=== PATIENT | male | born 1985 | race Caucasian/White ===

== ENCOUNTER 2020-12-22 19:57 | Observation (INO) | payer BC ==
[2020-12-22] MEDS ORDERED: Nitroglycerin 0.4 MG Tab.SL SL PRN (20:25)
[2020-12-22] MEDS ORDERED: Sodium Chloride 0.9% 10 ML Syringe FLUSH PRN (20:25)
[2020-12-22] MEDS ORDERED: Sodium Chloride 0.9% 2.5 ML Syringe FLUSH PRN (20:25)
[2020-12-22] MEDS ORDERED: Aspirin 81 MG Tab.Chew PO ONE (20:25)
[2020-12-22] MEDS ORDERED: Nitroglycerin 2% Oint 1 GM UD Packet TOP ONE (20:26)
[2020-12-22 20:46] LABS: BLOOD UREA NITROGEN,BUN 18 mg/dL (7.0-18.0); CARBON DIOXIDE,CO2 32.2 mmol/L (21.0-32.0); CHLORIDE,CL 100 mmol/L (98-107); GLUCOSE RANDOM 146 mg/dL (74-106); POTASSIUM,K 3.4 mmol/L (3.5-5.1); SODIUM,NA 139 mmol/L (136-148)
--- NOTE | 2020-12-22 20:57 | EDM.PDOC ---
ED HPI GENERAL MEDICAL PROBLEM - General Chief Complaint: Chest Pain Stated Complaint: CHEST PAIN Time Seen by Provider: 12/22/20 20:12 - History of Present Illness INITIAL COMMENTS - FREE TEXT/NARRATIVE: HISTORY AND PHYSICAL: History of present illness: This is a 35-year-old gentleman with no history of hypertension, diabetes, liver, lung, kidney problems in the past who presents to the ER today complaining of midsternal chest pressure that began while he was watching TV with his family approximately 1 to 2 hours prior to arrival. Patient denies any prior coronary disease or strokes in the past. Patient reports that he has been told his cholesterol level was slightly high but is never started on any medications. Patient is unclear about his blood pressure. Patient denies any tobacco use. Patient reports he does not have a sedentary lifestyle. Patient reports his father had 4 heart attacks in his 40s requiring interventions. Patient denies any alcohol or drugs. Patient denies any abdominal or chest surgeries in the past. Patient reports that the pain came on while at rest and felt discomfort going down his left arm as well as associated shortness of breath. Patient reports that he attempted to give himself a "little mini stress test "and he started breaking down boxes in his home when he started having the discomfort come back once again and increased shortness of breath as well as some associated nausea. Patient denies any diaphoresis. Patient reports pain rating down his left arm as well as his back during this episode. Patient reports that discomfort improved while resting. Patient denies any recent fevers, shakes, chills, vomiting, diarrhea, dysuria, frequency, urgency, melena, bright red blood per rectum, abdominal pain. Patient reports while he is in the ED resting on the gurney he has a 1 out of 10 chest discomfort. Patient reports no prior similar symptoms in the past. Patient presents to the ER today secondary to concerns especially given his father's history and the discomfort that worsened when he exerted himself at his home. Review of systems: As per history of present illness and below otherwise all systems reviewed and negative. Past medical history: As per history of present illness and as reviewed below otherwise noncontributory. Surgical history: As per history of present illness and as reviewed below otherwise noncontributory. Social history: No reported history of drug or alcohol abuse. Family history: As per history of present illness and as reviewed below otherwise noncontributory. Physical exam: This patient was seen and evaluated during the 2019 SARS-CoV-2 novel coronavirus pandemic period. Community viral transmission is ongoing at time of this encounter and the emergency department is operating under pandemic response procedures. Constitutional: Patient is oriented to person, place, and time. Appears well- developed and well-nourished. No distress. HEENT: Moist mucous membranes Head: Normocephalic and atraumatic Eyes: Right eye exhibits no discharge. Left eye exhibits no discharge. No scleral icterus Neck: Normal range of motion. No tracheal deviation present. Cardiovascular: Normal rate and regular rhythm. Pulmonary: Effort normal, no respiratory distress. Abdominal: No distention Musculoskeletal: Normal range of motion Neurologic: Alert and oriented to person, place and time. Skin: [place], warm and dry. Psychiatric: Normal mood and affect. Behavior is normal. Judgment and thought content normal. Nursing note and vital signs have been reviewed Diagnostics: EKG: As interpreted by ER physician: Franck: Nonspecific ST-T wave abnormalities Normal axis No evidence of ST elevation [place] Normal sinus rhythm heart rate of 71 Chest Xray: Normal cardiac silhouette No infiltrates or effusions identified. No PTX No evidence of acute bony fracture. As interpreted by ER MD: Franck [employer]: Nitropaste 1 inch anterior chest wall Aspirin 325 p.o. Assessment and plan: This is a 35-year-old gentleman with cardiac risk factors significant for family history, elevated cholesterol who presents to the ER today secondary to chest pressure that started while at rest but is worsened with exertion. Patient reports associated pain rating down his left arm and back, shortness of breath, nausea. I discussed with the patient that given his risk factors that we will likely need to admit him for observation. We will send a CBC, CMP, troponin, EKG, chest x-ray, D-dimer, BNP and will reevaluate patient's condition after labs. Patient's labs are all unremarkable. Patient currently is pain-free. As I discussed with the patient, he is low risk however given his family history and his symptoms I feel admission would be warranted for observation. Patient is in agreement with the current plan. Case was discussed with Dr. Suarez who agrees to assist with observation level of care. Definitive disposition and diagnosis as appropriate pending reevaluation and review of above. - Related Data Allergies Allergy/AdvReac Type Severity Reaction Status Date / Time No Known Allergies Allergy Verified 12/22/20 20:08 Home Meds: Home Meds . [No Known Home Meds] 12/22/20 [History] Past Medical History - Past Health History Medical/Surgical History: Denies Medical/Surgical History - Infectious Disease History Infectious Disease History: Reports: Chicken Pox Social & Family History - Family History Family Medical History: No Pertinent Family History - Tobacco Use Tobacco Use Status *Q: Never Tobacco User - Caffeine Use Caffeine Use: Reports: Energy Drinks - Recreational Drug Use Recreational Drug Use: No ED ROS GENERAL - Review of Systems Review Of Systems: See Below ED EXAM, GENERAL - Physical Exam Exam: See Below Course - Vital Signs Last Recorded V/S: Last Vital Signs Temp 97.3 F 12/22/20 20:08 Pulse 77 12/22/20 20:08 Resp 20 12/22/20 20:08 BP 151/105 H 12/22/20 20:08 Pulse Ox 96 12/22/20 20:08 - Orders/Labs/Meds Orders: Active Orders 24 hr Category Date Time Status EKG Documentation Completion [RC] AM Care 12/22/20 20:25 Active Nitroglycerin [Nitrostat] Med 12/22/20 20:25 Active 0.4 mg SL Q5M PRN Sodium Chloride 0.9% [Saline Flush] Med 12/22/20 20:25 Active 10 ml FLUSH ASDIRECTED PRN Sodium Chloride 0.9% [Saline Flush] Med 12/22/20 20:25 Active 2.5 ml FLUSH ASDIRECTED PRN Saline Lock Insert [OM.PC] Stat Oth 12/22/20 20:25 Ordered Medication Orders Nitroglycerin (Nitrostat) 0.4 mg SL Q5M PRN PRN Reason: Chest Pain Sodium Chloride (Saline Flush) 10 ml FLUSH ASDIRECTED PRN PRN Reason: Keep Vein Open Last Admin: 12/22/20 20:32 Dose: 10 ml Documented by: KRISTAL Sodium Chloride (Saline Flush) 2.5 ml FLUSH ASDIRECTED PRN PRN Reason: Keep Vein Open Last Admin: 12/22/20 20:32 Dose: 2.5 ml Documented by: KRISTAL Labs: Laboratory Tests 02/20/21 02/20/21 02/20/21 Range/Units 20:03 20:03 20:03 WBC 13.86 H (4.0-11.0) K/uL RBC 4.96 (4.50-5.90) M/uL Hgb 15.0 (13.0-17.0) g/dL Hct 45.7 (38.0-50.0) % MCV 92.1 (80.0-98.0) fL MCH 30.2 (27.0-32.0) pg MCHC 32.8 (31.0-37.0) g/dL RDW Std Deviation 49.4 (28.0-62.0) fl RDW Coeff of Luciana 15 (11.0-15.0) % Plt Count 326 (150-400) K/uL MPV 10.60 (7.40-12.00) fL Add Manual Diff YES Neutrophils % (Manual) 25 L (48.0-80.0) % Lymphocytes % (Manual) 55 H (16.0-40.0) % Monocytes % (Manual) 15 (0.0-15.0) % Eosinophils % (Manual) 4 (0.0-7.0) % Basophils % (Manual) 1 (0.0-1.5) % Nucleated RBC % 0.0 /100WBC Absolute Seg Neuts 3.5 (1.4-5.7) Lymphocytes # (Manual) 7.6 H (0.6-2.4) Monocytes # (Manual) 2.1 H (0.0-0.8) Eosinophils # (Manual) 0.6 (0.0-0.7) Basophils # (Manual) 0.1 (0.0-0.1) Nucleated RBCs # 0 K/uL D-Dimer, Quantitative 0.35 (0.0-0.50) mg/L FEU Sodium 139 (136-148) mmol/L Potassium 3.4 L (3.5-5.1) mmol/L Chloride 100 (98-107) mmol/L Carbon Dioxide 32.2 H (21.0-32.0) mmol/L BUN 18 (7.0-18.0) mg/dL Creatinine 1.1 (0.8-1.3) mg/dL Est Cr Clr Drug Dosing 101.73 mL/min Estimated GFR (MDRD) > 60.0 ml/min Glucose 146 H (74-106) mg/dL Calcium 9.5 (8.5-10.1) mg/dL Total Bilirubin 0.2 (0.2-1.0) mg/dL AST 25 (15-37) IU/L ALT 36 (14-63) IU/L Alkaline Phosphatase 100 (46-116) U/L Troponin I < 0.050 (0.000-0.056) ng/mL B-Natriuretic Peptide (<100) PG/ML Total Protein 8.6 H (6.4-8.2) g/dL Albumin 3.9 (3.4-5.0) g/dL Globulin 4.7 H (2.6-4.0) g/dL Albumin/Globulin Ratio 0.8 L (0.9-1.6) SARS-CoV-2 RNA (PEPE) (NEGATIVE) 12/22/20 12/22/20 Range/Units 20:03 20:37 WBC (4.0-11.0) K/uL RBC (4.50-5.90) M/uL Hgb (13.0-17.0) g/dL Hct (38.0-50.0) % MCV (80.0-98.0) fL MCH (27.0-32.0) pg MCHC (31.0-37.0) g/dL RDW Std Deviation (28.0-62.0) fl RDW Coeff of Luciana (11.0-15.0) % Plt Count (150-400) K/uL MPV (7.40-12.00) fL Add Manual Diff Neutrophils % (Manual) (48.0-80.0) % Lymphocytes % (Manual) (16.0-40.0) % Monocytes % (Manual) (0.0-15.0) % Eosinophils % (Manual) (0.0-7.0) % Basophils % (Manual) (0.0-1.5) % Nucleated RBC % /100WBC Absolute Seg Neuts (1.4-5.7) Lymphocytes # (Manual) (0.6-2.4) Monocytes # (Manual) (0.0-0.8) Eosinophils # (Manual) (0.0-0.7) Basophils # (Manual) (0.0-0.1) Nucleated RBCs # K/uL D-Dimer, Quantitative (0.0-0.50) mg/L FEU Sodium (136-148) mmol/L Potassium (3.5-5.1) mmol/L Chloride (98-107) mmol/L Carbon Dioxide (21.0-32.0) mmol/L BUN (7.0-18.0) mg/dL Creatinine (0.8-1.3) mg/dL Est Cr Clr Drug Dosing mL/min Estimated GFR (MDRD) ml/min Glucose (74-106) mg/dL Calcium (8.5-10.1) mg/dL Total Bilirubin (0.2-1.0) mg/dL AST (15-37) IU/L ALT (14-63) IU/L Alkaline Phosphatase (46-116) U/L Troponin I (0.000-0.056) ng/mL B-Natriuretic Peptide < 2 (<100) PG/ML Total Protein (6.4-8.2) g/dL Albumin (3.4-5.0) g/dL Globulin (2.6-4.0) g/dL Albumin/Globulin Ratio (0.9-1.6) SARS-CoV-2 RNA (PEPE) NEGATIVE (NEGATIVE) Meds: Medications Generic Name Dose Route Start Last Admin Trade Name Freq PRN Reason Stop Dose Admin Nitroglycerin 0.4 mg 12/22/20 20:25 Nitrostat SL Q5M PRN Chest Pain Sodium Chloride 10 ml 12/22/20 20:25 12/22/20 20:32 Saline Flush FLUSH 10 ml ASDIRECTED PRN Administration Keep Vein Open Sodium Chloride 2.5 ml 12/22/20 20:25 12/22/20 20:32 Saline Flush FLUSH 2.5 ml ASDIRECTED PRN Administration Keep Vein Open Discontinued Medications Generic Name Dose Route Start Last Admin Trade Name Freq PRN Reason Stop Dose Admin Aspirin 324 mg 12/22/20 20:25 12/22/20 20:31 Aspirin PO 12/22/20 20:26 324 mg ONETIME ONE Administration Nitroglycerin 1 gm 12/22/20 20:26 12/22/20 20:31 Nitro-Bid 2% TOP 12/22/20 20:27 1 gm ONETIME ONE Administration Departure - Departure Time of Disposition: 21:36 Disposition: Refer to Observation Condition: Good Clinical Impression: Acute coronary syndrome - Discharge Information Forms: ED Department Discharge Sepsis Event Note (ED) - Evaluation Sepsis Screening Result: No Definite Risk - Focused Exam Vital Signs: Vital Signs Temp Pulse Resp BP Pulse Ox 12/22/20 20:08 97.3 F 77 20 151/105 H 96 - My Orders Last 24 Hours: My Active Orders 12/22/20 20:25 EKG Documentation Completion [RC] AM Nitroglycerin [Nitrostat] 0.4 mg SL Q5M PRN Sodium Chloride 0.9% [Saline Flush] 10 ml FLUSH ASDIRECTED PRN Sodium Chloride 0.9% [Saline Flush] 2.5 ml FLUSH ASDIRECTED PRN Saline Lock Insert [OM.PC] Stat - Assessment/Plan Last 24 Hours: My Active Orders 12/22/20 20:25 EKG Documentation Completion [RC] AM Nitroglycerin [Nitrostat] 0.4 mg SL Q5M PRN Sodium Chloride 0.9% [Saline Flush] 10 ml FLUSH ASDIRECTED PRN Sodium Chloride 0.9% [Saline Flush] 2.5 ml FLUSH ASDIRECTED PRN Saline Lock Insert [OM.PC] Stat
--- NOTE | 2020-12-22 21:18 | CR ---
INDICATION: Chest pain. TECHNIQUE: AP portable chest x-ray. FINDINGS: Relatively shallow inspiration. Heart size normal. Lungs clear without infiltrate or consolidation. Chest otherwise negative. Dictated by Abdullahi Espinoza MD @ Dec 22 2020 9:16PM Signed by Dr. Abdullahi Espinoza @ Dec 22 2020 9:17PM
[2020-12-22] MEDS ORDERED: Pantoprazole 40 MG in Sodium Chloride 0.9% 10 ML IV ONE (22:39)
--- NOTE | 2020-12-22 22:39 | PCM.HP.2 ---
H&P History of Present Illness - General Date of Service: 12/22/20 Admit Problem/Dx: Admission Diagnosis/Problem Admission Diagnosis/Problem Acute coronary syndrome - History of Present Illness Initial Comments - Free Text/Narative: 35 yo male who presented to the ED with complaint of chest pain. He reports after eating pizza he started burping a lot. He reported chest pressure that radiated down the left arm. He denied any shortness of breath, dizziness, or diaphoresis. The pain lasted 45 minutes. IN the ED EKG and troponin were negative for signs of ischemia. He was given Aspirin 324mg and nitro paste. Chest Pain Score (Numeric/FACES): 1 - Related Data Allergies/Adverse Reactions: Allergies Allergy/AdvReac Type Severity Reaction Status Date / Time No Known Allergies Allergy Verified 12/22/20 23:00 Home Medications: Home Meds . [No Known Home Meds] 12/22/20 [History] Past Medical History - Past Health History Medical/Surgical History: Denies Medical/Surgical History - Infectious Disease History Infectious Disease History: Reports: Chicken Pox Social & Family History - Family History Family Medical History: No Pertinent Family History - Tobacco Use Tobacco Use Status *Q: Never Tobacco User - Caffeine Use Caffeine Use: Reports: Energy Drinks - Recreational Drug Use Recreational Drug Use: No H&P Review of Systems - Review of Systems: Review Of Systems: Comprehensive ROS is negative, except as noted in HPI. Exam - Exam Exam: See Below - Vital Signs Vital Signs: Last Vital Signs Temp 36.3 C 12/22/20 20:08 Pulse 77 12/22/20 20:08 Resp 20 12/22/20 20:08 BP 151/105 H 12/22/20 20:08 Pulse Ox 96 12/22/20 20:08 Weight: 99.79 kg - Exam General: Alert, Oriented HEENT: Mucosa Moist & [place] Neck: Supple Lungs: Clear to Auscultation, Normal Respiratory Effort Cardiovascular: Regular Rate, Regular Rhythm GI/Abdominal Exam: Normal Bowel Sounds, Soft, Non-Tender Extremities: Non-Tender, No Pedal Edema Skin: Warm, Dry, Intact Neurological: Cranial Nerves Intact - Patient Data Lab Results Last 24 hrs: Laboratory Results - last 24 hr 12/22/20 12/22/20 12/22/20 Range/Units 20:03 20:03 20:03 WBC 13.86 H (4.0-11.0) K/uL RBC 4.96 (4.50-5.90) M/uL Hgb 15.0 (13.0-17.0) g/dL Hct 45.7 (38.0-50.0) % MCV 92.1 (80.0-98.0) fL MCH 30.2 (27.0-32.0) pg MCHC 32.8 (31.0-37.0) g/dL RDW Std Deviation 49.4 (28.0-62.0) fl RDW Coeff of Luciana 15 (11.0-15.0) % Plt Count 326 (150-400) K/uL MPV 10.60 (7.40-12.00) fL Add Manual Diff YES Neutrophils % (Manual) 25 L (48.0-80.0) % Lymphocytes % (Manual) 55 H (16.0-40.0) % Monocytes % (Manual) 15 (0.0-15.0) % Eosinophils % (Manual) 4 (0.0-7.0) % Basophils % (Manual) 1 (0.0-1.5) % Nucleated RBC % 0.0 /100WBC Absolute Seg Neuts 3.5 (1.4-5.7) Lymphocytes # (Manual) 7.6 H (0.6-2.4) Monocytes # (Manual) 2.1 H (0.0-0.8) Eosinophils # (Manual) 0.6 (0.0-0.7) Basophils # (Manual) 0.1 (0.0-0.1) Nucleated RBCs # 0 K/uL D-Dimer, Quantitative 0.35 (0.0-0.50) mg/L FEU Sodium 139 (136-148) mmol/L Potassium 3.4 L (3.5-5.1) mmol/L Chloride 100 (98-107) mmol/L Carbon Dioxide 32.2 H (21.0-32.0) mmol/L BUN 18 (7.0-18.0) mg/dL Creatinine 1.1 (0.8-1.3) mg/dL Est Cr Clr Drug Dosing 101.73 mL/min Estimated GFR (MDRD) > 60.0 ml/min Glucose 146 H (74-106) mg/dL Calcium 9.5 (8.5-10.1) mg/dL Total Bilirubin 0.2 (0.2-1.0) mg/dL AST 25 (15-37) IU/L ALT 36 (14-63) IU/L Alkaline Phosphatase 100 (46-116) U/L Troponin I < 0.050 (0.000-0.056) ng/mL B-Natriuretic Peptide (<100) PG/ML Total Protein 8.6 H (6.4-8.2) g/dL Albumin 3.9 (3.4-5.0) g/dL Globulin 4.7 H (2.6-4.0) g/dL Albumin/Globulin Ratio 0.8 L (0.9-1.6) SARS-CoV-2 RNA (PEPE) (NEGATIVE) 12/22/20 12/22/20 Range/Units 20:03 20:37 WBC (4.0-11.0) K/uL RBC (4.50-5.90) M/uL Hgb (13.0-17.0) g/dL Hct (38.0-50.0) % MCV (80.0-98.0) fL MCH (27.0-32.0) pg MCHC (31.0-37.0) g/dL RDW Std Deviation (28.0-62.0) fl RDW Coeff of Luciana (11.0-15.0) % Plt Count (150-400) K/uL MPV (7.40-12.00) fL Add Manual Diff Neutrophils % (Manual) (48.0-80.0) % Lymphocytes % (Manual) (16.0-40.0) % Monocytes % (Manual) (0.0-15.0) % Eosinophils % (Manual) (0.0-7.0) % Basophils % (Manual) (0.0-1.5) % Nucleated RBC % /100WBC Absolute Seg Neuts (1.4-5.7) Lymphocytes # (Manual) (0.6-2.4) Monocytes # (Manual) (0.0-0.8) Eosinophils # (Manual) (0.0-0.7) Basophils # (Manual) (0.0-0.1) Nucleated RBCs # K/uL D-Dimer, Quantitative (0.0-0.50) mg/L FEU Sodium (136-148) mmol/L Potassium (3.5-5.1) mmol/L Chloride (98-107) mmol/L Carbon Dioxide (21.0-32.0) mmol/L BUN (7.0-18.0) mg/dL Creatinine (0.8-1.3) mg/dL Est Cr Clr Drug Dosing mL/min Estimated GFR (MDRD) ml/min Glucose (74-106) mg/dL Calcium (8.5-10.1) mg/dL Total Bilirubin (0.2-1.0) mg/dL AST (15-37) IU/L ALT (14-63) IU/L Alkaline Phosphatase (46-116) U/L Troponin I (0.000-0.056) ng/mL B-Natriuretic Peptide < 2 (<100) PG/ML Total Protein (6.4-8.2) g/dL Albumin (3.4-5.0) g/dL Globulin (2.6-4.0) g/dL Albumin/Globulin Ratio (0.9-1.6) SARS-CoV-2 RNA (PEPE) NEGATIVE (NEGATIVE) Result Diagrams: 12/22/20 20:03 12/22/20 20:03 Sepsis Event Note - Evaluation Sepsis Screening Result: No Definite Risk - Focused Exam Vital Signs: Vital Signs Temp Pulse Resp BP Pulse Ox 12/22/20 20:08 36.3 C 77 20 151/105 H 96 Problem List Initiated/Reviewed/Updated: Yes Orders Last 24hrs: Active Orders 24 hr Category Date Time Status Patient Status [ADT] Routine ADT 12/22/20 21:36 Active EKG Documentation Completion [RC] AM Care 12/22/20 20:25 Active Nitroglycerin [Nitrostat] Med 12/22/20 20:25 Active 0.4 mg SL Q5M PRN Sodium Chloride 0.9% [Saline Flush] Med 12/22/20 20:25 Active 10 ml FLUSH ASDIRECTED PRN Sodium Chloride 0.9% [Saline Flush] Med 12/22/20 20:25 Active 2.5 ml FLUSH ASDIRECTED PRN Saline Lock Insert [OM.PC] Stat Oth 12/22/20 20:25 Ordered Medication Orders Nitroglycerin (Nitrostat) 0.4 mg SL Q5M PRN PRN Reason: Chest Pain Sodium Chloride (Saline Flush) 10 ml FLUSH ASDIRECTED PRN PRN Reason: Keep Vein Open Last Admin: 12/22/20 20:32 Dose: 10 ml Documented by: KRISTAL Sodium Chloride (Saline Flush) 2.5 ml FLUSH ASDIRECTED PRN PRN Reason: Keep Vein Open Last Admin: 12/22/20 20:32 Dose: 2.5 ml Documented by: KRISTAL Assessment/Plan Comment:: 35 yo male admitted for chest pain. We will monitor overnight on telemetry and trend cardiac enzymes.
[2020-12-23] MEDS ORDERED: Potassium Chloride 20 MEQ Tab.ER PO ONE (02:43)
[2020-12-23] MEDS ORDERED: Heparin Sodium 5,000 Units/ML Vial IVPUSH ONE (02:55)
[2020-12-23] MEDS ORDERED: Heparin Sodium/0.45% NaCl 500 ML IV SCH (03:00)
--- NOTE | 2020-12-23 03:18 | PCM.DCSUM1 ---
Discharge Summary - Discharge Data Discharge Date: 12/23/20 Discharge Disposition: DC/Tfer to Acute Hospital 02 Condition: Stable - Referral to Home Health Primary Care Physician: Shayan Monte MD - Patient Summary/Data Hospital Course: 35 yo male who presented to the ED with complaint of chest pain. He reports after eating pizza he started burping a lot. He reported chest pressure that radiated down the left arm. He denied any shortness of breath, dizziness, or diaphoresis. The pain lasted 45 minutes. In the ED EKG and troponin were negative for signs of ischemia. He was given Aspirin 324mg and nitro paste. He was transferred to the floor and monitored on telemetry. Repeat troponin was 4.5. Repeat EKG showed no ST segment changes. He was started on a Heparin drip for possible NSTEMI. Patient has family history of early NC. Patient would likely benefit from transfer to facility with cardiology. I called [facility] and Dr. Morgan Nayak has accepted the patient. - Discharge Plan Home Medications: Home Meds . [No Known Home Meds] 12/22/20 [History] Forms: ED Department Discharge Referrals: Shayan Monte MD [Primary Care Provider] - - Discharge Summary/Plan Comment DC Time >30 min.: No - Patient Data Vitals - Most Recent: Last Vital Signs Temp 36.8 C 12/23/20 02:34 Pulse 72 12/23/20 02:34 Resp 18 12/23/20 02:34 BP 117/70 12/23/20 02:34 Pulse Ox 96 12/23/20 02:34 Weight - Most Recent: 106.957 kg Lab Results - Last 24 hrs: Laboratory Results - last 24 hr 12/22/20 12/22/20 12/22/20 Range/Units 20:03 20:03 20:03 WBC 13.86 H (4.0-11.0) K/uL RBC 4.96 (4.50-5.90) M/uL Hgb 15.0 (13.0-17.0) g/dL Hct 45.7 (38.0-50.0) % MCV 92.1 (80.0-98.0) fL MCH 30.2 (27.0-32.0) pg MCHC 32.8 (31.0-37.0) g/dL RDW Std Deviation 49.4 (28.0-62.0) fl RDW Coeff of Luciana 15 (11.0-15.0) % Plt Count 326 (150-400) K/uL MPV 10.60 (7.40-12.00) fL Add Manual Diff YES Neutrophils % (Manual) 25 L (48.0-80.0) % Lymphocytes % (Manual) 55 H (16.0-40.0) % Monocytes % (Manual) 15 (0.0-15.0) % Eosinophils % (Manual) 4 (0.0-7.0) % Basophils % (Manual) 1 (0.0-1.5) % Nucleated RBC % 0.0 /100WBC Absolute Seg Neuts 3.5 (1.4-5.7) Lymphocytes # (Manual) 7.6 H (0.6-2.4) Monocytes # (Manual) 2.1 H (0.0-0.8) Eosinophils # (Manual) 0.6 (0.0-0.7) Basophils # (Manual) 0.1 (0.0-0.1) Nucleated RBCs # 0 K/uL APTT (18.6-31.3) SEC D-Dimer, Quantitative 0.35 (0.0-0.50) mg/L FEU Sodium 139 (136-148) mmol/L Potassium 3.4 L (3.5-5.1) mmol/L Chloride 100 (98-107) mmol/L Carbon Dioxide 32.2 H (21.0-32.0) mmol/L BUN 18 (7.0-18.0) mg/dL Creatinine 1.1 (0.8-1.3) mg/dL Est Cr Clr Drug Dosing 101.73 mL/min Estimated GFR (MDRD) > 60.0 ml/min Glucose 146 H (74-106) mg/dL Calcium 9.5 (8.5-10.1) mg/dL Total Bilirubin 0.2 (0.2-1.0) mg/dL AST 25 (15-37) IU/L ALT 36 (14-63) IU/L Alkaline Phosphatase 100 (46-116) U/L Troponin I < 0.050 (0.000-0.056) ng/mL B-Natriuretic Peptide (<100) PG/ML Total Protein 8.6 H (6.4-8.2) g/dL Albumin 3.9 (3.4-5.0) g/dL Globulin 4.7 H (2.6-4.0) g/dL Albumin/Globulin Ratio 0.8 L (0.9-1.6) SARS-CoV-2 RNA (PEPE) (NEGATIVE) 12/22/20 12/22/20 12/23/20 Range/Units 20:03 20:37 02:00 WBC (4.0-11.0) K/uL RBC (4.50-5.90) M/uL Hgb (13.0-17.0) g/dL Hct (38.0-50.0) % MCV (80.0-98.0) fL MCH (27.0-32.0) pg MCHC (31.0-37.0) g/dL RDW Std Deviation (28.0-62.0) fl RDW Coeff of Luciana (11.0-15.0) % Plt Count (150-400) K/uL MPV (7.40-12.00) fL Add Manual Diff Neutrophils % (Manual) (48.0-80.0) % Lymphocytes % (Manual) (16.0-40.0) % Monocytes % (Manual) (0.0-15.0) % Eosinophils % (Manual) (0.0-7.0) % Basophils % (Manual) (0.0-1.5) % Nucleated RBC % /100WBC Absolute Seg Neuts (1.4-5.7) Lymphocytes # (Manual) (0.6-2.4) Monocytes # (Manual) (0.0-0.8) Eosinophils # (Manual) (0.0-0.7) Basophils # (Manual) (0.0-0.1) Nucleated RBCs # K/uL APTT (18.6-31.3) SEC D-Dimer, Quantitative (0.0-0.50) mg/L FEU Sodium (136-148) mmol/L Potassium (3.5-5.1) mmol/L Chloride (98-107) mmol/L Carbon Dioxide (21.0-32.0) mmol/L BUN (7.0-18.0) mg/dL Creatinine (0.8-1.3) mg/dL Est Cr Clr Drug Dosing mL/min Estimated GFR (MDRD) ml/min Glucose (74-106) mg/dL Calcium (8.5-10.1) mg/dL Total Bilirubin (0.2-1.0) mg/dL AST (15-37) IU/L ALT (14-63) IU/L Alkaline Phosphatase (46-116) U/L Troponin I 4.355 H* (0.000-0.056) ng/mL B-Natriuretic Peptide < 2 (<100) PG/ML Total Protein (6.4-8.2) g/dL Albumin (3.4-5.0) g/dL Globulin (2.6-4.0) g/dL Albumin/Globulin Ratio (0.9-1.6) SARS-CoV-2 RNA (PEPE) NEGATIVE (NEGATIVE) 12/23/20 Range/Units 02:53 WBC (4.0-11.0) K/uL RBC (4.50-5.90) M/uL Hgb (13.0-17.0) g/dL Hct (38.0-50.0) % MCV (80.0-98.0) fL MCH (27.0-32.0) pg MCHC (31.0-37.0) g/dL RDW Std Deviation (28.0-62.0) fl RDW Coeff of Luciana (11.0-15.0) % Plt Count (150-400) K/uL MPV (7.40-12.00) fL Add Manual Diff Neutrophils % (Manual) (48.0-80.0) % Lymphocytes % (Manual) (16.0-40.0) % Monocytes % (Manual) (0.0-15.0) % Eosinophils % (Manual) (0.0-7.0) % Basophils % (Manual) (0.0-1.5) % Nucleated RBC % /100WBC Absolute Seg Neuts (1.4-5.7) Lymphocytes # (Manual) (0.6-2.4) Monocytes # (Manual) (0.0-0.8) Eosinophils # (Manual) (0.0-0.7) Basophils # (Manual) (0.0-0.1) Nucleated RBCs # K/uL APTT 26.5 (18.6-31.3) SEC D-Dimer, Quantitative (0.0-0.50) mg/L FEU Sodium (136-148) mmol/L Potassium (3.5-5.1) mmol/L Chloride (98-107) mmol/L Carbon Dioxide (21.0-32.0) mmol/L BUN (7.0-18.0) mg/dL Creatinine (0.8-1.3) mg/dL Est Cr Clr Drug Dosing mL/min Estimated GFR (MDRD) ml/min Glucose (74-106) mg/dL Calcium (8.5-10.1) mg/dL Total Bilirubin (0.2-1.0) mg/dL AST (15-37) IU/L ALT (14-63) IU/L Alkaline Phosphatase (46-116) U/L Troponin I (0.000-0.056) ng/mL B-Natriuretic Peptide (<100) PG/ML Total Protein (6.4-8.2) g/dL Albumin (3.4-5.0) g/dL Globulin (2.6-4.0) g/dL Albumin/Globulin Ratio (0.9-1.6) SARS-CoV-2 RNA (PEPE) (NEGATIVE) Med Orders - Current: Current Medications Heparin Sodium/Sodium Chloride (Heparin 25,000 Units In 1/2 Ns 500 Ml) 500 mls @ 19.894 mls/hr IV TITRATE TREVIN; Protocol Nitroglycerin (Nitrostat) 0.4 mg SL Q5M PRN PRN Reason: Chest Pain Sodium Chloride (Saline Flush) 10 ml FLUSH ASDIRECTED PRN PRN Reason: Keep Vein Open Last Admin: 12/22/20 20:32 Dose: 10 ml Documented by: Sodium Chloride (Saline Flush) 2.5 ml FLUSH ASDIRECTED PRN PRN Reason: Keep Vein Open Last Admin: 12/22/20 20:32 Dose: 2.5 ml Documented by: Discontinued Medications Aspirin (Aspirin) 324 mg PO ONETIME ONE Stop: 12/22/20 20:26 Last Admin: 12/22/20 20:31 Dose: 324 mg Documented by: Heparin Sodium (Porcine) (Heparin Sodium) 4,000 units IVPUSH ONETIME ONE Stop: 12/23/20 02:56 Pantoprazole Sodium 40 mg/ (Sodium Chloride) 10 mls @ 300 mls/hr IV ONETIME ONE Stop: 12/22/20 22:40 Last Admin: 12/22/20 22:59 Dose: 300 mls/hr Documented by: Nitroglycerin (Nitro-Bid 2%) 1 gm TOP ONETIME ONE Stop: 12/22/20 20:27 Last Admin: 12/22/20 20:31 Dose: 1 gm Documented by: Potassium Chloride (Klor-Con M20) 40 meq PO ONETIME ONE Stop: 12/23/20 02:44 Last Admin: 12/23/20 02:52 Dose: 40 meq Documented by:
== END 2020-12-23 04:18 ==
LOC: MW.ED 19:57 → MW.MS 22:07
PROVIDERS: ADMIT Internal Medicine; ATTEND Internal Medicine
DX: R07.9 Chest pain, unspecified (principal); I24.9 Acute ischemic heart disease, unspecified; E78.00 Pure hypercholesterolemia, unspecified; Z20.822 Contact with and (suspected) exposure to COVID-19
CPT/HCPCS: 36415; 71045; 80053; 83880; 84484; 85025; 85379; 85730; 87635; 93005; 99285; A9270; C9113; J1644; 93010; 96365; 96375; 99284; G0378; U0002

== ENCOUNTER 2021-01-16 17:55 | Emergency (ER) | payer BC ==
--- NOTE | 2021-01-16 18:04 | EDM.PDOC ---
<Frank Rasmussen - Last Filed: 01/16/21 18:20> ED HPI GENERAL MEDICAL PROBLEM - General Chief Complaint: Chest Pain Stated Complaint: CHEST PAIN Time Seen by Provider: 01/16/21 18:03 Source of Information: Reports: Patient History Limitations: Reports: No Limitations - History of Present Illness INITIAL COMMENTS - FREE TEXT/NARRATIVE: Patient is a 35-year-old male with a history of NM about 3 weeks ago and stent placement presents today for left-sided chest pain radiating to his left arm. Patient described the pain as a 1 out of 10 states that his does not really bother him but since he had a recent heart attack he get concerned decided come in. Patient dates he took some aspirin earlier today. Patient denies any shortness of breath fever chills nausea vomiting. Patient does admit the pain better or worse. chest Pain Score (Numeric/FACES): 1 - Related Data Allergies Allergy/AdvReac Type Severity Reaction Status Date / Time No Known Allergies Allergy Verified 01/16/21 18:03 Home Meds: Home Meds Aspirin 81 mg PO DAILY 01/16/21 [History] Metoprolol Succinate [Toprol XL 50mg] 50 mg PO DAILY 01/16/21 [History] Nitroglycerin 0.4 mg SL Q5M PRN 01/16/21 [History] atorvaSTATin [Lipitor] 20 mg PO DAILY 01/16/21 [History] lisinopriL [Lisinopril] 2.5 mg PO DAILY 01/16/21 [History] Past Medical History - Past Health History Medical/Surgical History: Denies Medical/Surgical History - Infectious Disease History Infectious Disease History: Reports: Chicken Pox - Past Surgical History HEENT Surgical History: Reports: Tonsillectomy Social & Family History - Family History Family Medical History: No Pertinent Family History Cardiac: Reports: High Cholesterol, NM Endocrine/Metabolic: Reports: Diabetes, type II - Caffeine Use Caffeine Use: Reports: Energy Drinks, Soda ED ROS GENERAL - Review of Systems Review Of Systems: See Below Constitutional: Reports: No Symptoms HEENT: Reports: No Symptoms Respiratory: Reports: No Symptoms Cardiovascular: Reports: Chest Pain Endocrine: Reports: No Symptoms GI/Abdominal: Reports: No Symptoms : Reports: No Symptoms Musculoskeletal: Reports: No Symptoms Skin: Reports: No Symptoms Neurological: Reports: No Symptoms Psychiatric: Reports: No Symptoms Hematologic/Lymphatic: Reports: No Symptoms Immunologic: Reports: No Symptoms ED EXAM, GENERAL - Physical Exam Exam: See Below Exam Limited By: No Limitations General Appearance: Alert, WD/WN Respiratory/Chest: No Respiratory Distress, Lungs Clear, Normal Breath Sounds Cardiovascular: Normal Peripheral Pulses, Regular Rate, Rhythm GI/Abdominal: Normal Bowel Sounds, Soft, Non-Tender Extremities: Normal Inspection, Normal Range of Motion Neurological: Alert, Oriented, Normal Cognition, Normal Gait #1 Interpretation EKG Date: 01/16/21 Time: 18:00 Rhythm: NSR Rate (Beats/Min): 82 ST-T: Normal Departure - Departure Disposition: Home, Self-Care 01 Clinical Impression: Chest pain, Shoulder pain Instructions: Shoulder Pain, Nonspecific Chest Pain, Adult Referrals: PCP,Ulyssesobjelena [Ordering Only Provider] - Shane Olivera MD [Ordering Only Provider] - Forms: ED Department Discharge Additional Instructions: Call your doctor in the morning If you have any prolonged chest pain of significance, diaphoresis, sweating, nausea with shortness of breath, or exertional pain. [facility] - cardiology [address] [place] [address] The following information is given to patients seen in the emergency department who are being discharged to home. This information is to outline your options for follow-up care. We provide all patients seen in our emergency department with a follow-up referral. The need for follow-up, as well as the timing and circumstances, are variable depending upon the specifics of your emergency department visit. If you don't have a primary care physician on staff, we will provide you with a referral. We always advise you to contact your personal physician following an emergency department visit to inform them of the circumstance of the visit and for follow-up with them and/or the need for any referrals to a consulting specialist. The emergency department will also refer you to a specialist when appropriate. This referral assures that you have the opportunity for follow-up care with a specialist. All of these measure are taken in an effort to provide you with optimal care, which includes your follow-up. Under all circumstances we always encourage you to contact your private physician who remains a resource for coordinating your care. When calling for follow-up care, please make the office aware that this follow-up is from your recent emergency room visit. If for any reason you are refused follow-up, please contact the [facility] Emergency Department at and asked to speak to the emergency department charge nurse. Sepsis Event Note (ED) - Evaluation Sepsis Screening Result: No Definite Risk - Assessment/Plan Plan: Patient is a 35-year-old male history of NM who presents today for left-sided chest pain 11/11. With recent NM patient has a heart score of 1 will obtain troponins likely to set. Patient unlikely to have an NM as he recently had a catheterization will look for any complications from recent cath. <Dorian Mantilla - Last Filed: 01/16/21 21:57> ED HPI GENERAL MEDICAL PROBLEM - History of Present Illness INITIAL COMMENTS - FREE TEXT/NARRATIVE: I interviewed the patient at 7:45 PM. He in the morning and before he went to his rehab evaluation 3 weeks post NM he had some light pressure in his chest entirely different than what he had when he had an LAD occlusion 3 weeks ago. It was better when he was on the treadmill and improved in fact with exercise. He had a little bit again tonight so he came in to make sure everything was okay after his primary doctor said he should do that. He took a nitroglycerin tonight and he is not actually sure about timing but thinks it may have helped. He was given the nitroglycerin as a precaution after he was sent home on Brilinta following stenting of his LAD. Patient is agreeable to a 9 PM troponin draw. He walks to the bathroom without any symptoms whatsoever. #2 Interpretation EKG Interpretation Comments: EGD at 6 hrs. Sinus rhythm heart rate 71 RI interval 175 Juliette XX 5 minimal R wave in V1 and V2 this is compared to the prior and the one 2 weeks ago and there is no acute injury. Impression there are is in the QRS from what would be expected that indicate he has had an anteroseptal infarct. There is no change in no acute injury. Course - Vital Signs Last Recorded V/S: Last Vital Signs Temp 37.2 C 01/16/21 19:04 Pulse 78 01/16/21 19:04 Resp 19 01/16/21 19:04 BP 116/75 01/16/21 19:04 Pulse Ox 99 03/17/21 19:04 - Orders/Labs/Meds Orders: Active Orders 24 hr Category Date Time Status EKG 12 Lead [EKG Documentation Completion] [RC] ROUTINE Care 01/16/21 21:00 Active Labs: Laboratory Tests 01/16/21 01/16/21 01/16/21 Range/Units 18:06 18:06 21:03 WBC 10.14 (4.0-11.0) K/uL RBC 3.39 L (4.50-5.90) M/uL Hgb 9.9 L (13.0-17.0) g/dL Hct 30.7 L (38.0-50.0) % MCV 90.6 (80.0-98.0) fL MCH 29.2 (27.0-32.0) pg MCHC 32.2 (31.0-37.0) g/dL RDW Std Deviation 47.1 (28.0-62.0) fl RDW Coeff of Luciana 14 (11.0-15.0) % Plt Count 375 (150-400) K/uL MPV 9.80 (7.40-12.00) fL Neut % (Auto) 65.5 (48.0-80.0) % Lymph % (Auto) 25.3 (16.0-40.0) % Rabun % (Auto) 7.8 (0.0-15.0) % Eos % (Auto) 1.1 (0.0-7.0) % Baso % (Auto) 0.3 (0.0-1.5) % Neut # (Auto) 6.6 H (1.4-5.7) K/uL Lymph # (Auto) 2.6 H (0.6-2.4) K/uL Rabun # (Auto) 0.8 (0.0-0.8) K/uL Eos # (Auto) 0.1 (0.0-0.7) K/uL Baso # (Auto) 0.0 (0.0-0.1) K/uL Nucleated RBC % 0.0 /100WBC Nucleated RBCs # 0 K/uL Sodium 137 (136-148) mmol/L Potassium 3.5 (3.5-5.1) mmol/L Chloride 102 (98-107) mmol/L Carbon Dioxide 25.2 (21.0-32.0) mmol/L BUN 16 (7.0-18.0) mg/dL Creatinine 1.1 (0.8-1.3) mg/dL Est Cr Clr Drug Dosing 101.73 mL/min Estimated GFR (MDRD) > 60.0 ml/min Glucose 109 H (74-106) mg/dL Calcium 8.7 (8.5-10.1) mg/dL Total Bilirubin 0.2 (0.2-1.0) mg/dL AST 28 (15-37) IU/L ALT 46 (14-63) IU/L Alkaline Phosphatase 75 (46-116) U/L Creatine Kinase 97 (26-308) U/L Troponin I < 0.050 < 0.050 (0.000-0.056) ng/mL Total Protein 7.7 (6.4-8.2) g/dL Albumin 3.7 (3.4-5.0) g/dL Globulin 4.0 (2.6-4.0) g/dL Albumin/Globulin Ratio 0.9 (0.9-1.6) Departure - Departure Time of Disposition: 21:55 Condition: Good Sepsis Event Note (ED) - Focused Exam Vital Signs: Vital Signs Temp Pulse Resp BP Pulse Ox 01/16/21 19:04 37.2 C 78 19 116/75 99 01/16/21 18:01 36.9 C 89 16 135/72 98 - My Orders Last 24 Hours: My Active Orders 01/16/21 21:00 EKG 12 Lead [EKG Documentation Completion] [RC] ROUTINE - Assessment/Plan Last 24 Hours: My Active Orders 01/16/21 21:00 EKG 12 Lead [EKG Documentation Completion] [RC] ROUTINE
[2021-01-16 18:55] LABS: BLOOD UREA NITROGEN,BUN 16 mg/dL (7.0-18.0); CARBON DIOXIDE,CO2 25.2 mmol/L (21.0-32.0); CHLORIDE,CL 102 mmol/L (98-107); GLUCOSE RANDOM 109 mg/dL (74-106); POTASSIUM,K 3.5 mmol/L (3.5-5.1); SODIUM,NA 137 mmol/L (136-148)
--- NOTE | 2021-01-16 19:07 | CR ---
INDICATION: chest pain to left arm COMPARISON: 22 Dec 2020 Single AP view Findings: The lungs are clear. Pulmonary vascularity, mediastinum and cardiac silhouette are within normal limits. No effusions and no pneumothorax. Osseous structures appear unremarkable. Impression: No evidence of acute cardiopulmonary disease. Dictated by: Leonides Yousif MD @ 01/16/2021 19:05:09 (Electronically Signed)
== END 2021-01-16 22:14 | disposition home or self-care (01) ==
LOC: MW.ED 17:55
DX: R07.89 Other chest pain (principal); M25.512 Pain in left shoulder; I25.2 Old myocardial infarction; Z95.5 Presence of coronary angioplasty implant and graft; Z79.82 Long term (current) use of aspirin; Z79.899 Other long term (current) drug therapy
CPT/HCPCS: 36415; 71045; 71045-26; 80053; 82550; 84484; 85025; 93005; 93010; 99284; 99285-25

== ENCOUNTER 2021-02-10 21:12 | Emergency (ER) | payer BC ==
--- NOTE | 2021-02-10 21:51 | EDM.PDOC ---
<Juliana Perez Syd - Last Filed: 02/10/21 21:40> ED HPI GENERAL MEDICAL PROBLEM - General Chief Complaint: Upper Extremity Injury/Pain Stated Complaint: POSSIBLE INFECTION AT IV SPOT LT ARM Time Seen by Provider: 02/10/21 21:14 Source of Information: Reports: Patient History Limitations: Reports: No Limitations - History of Present Illness INITIAL COMMENTS - FREE TEXT/NARRATIVE: Presents reporting blood clot or infection in his left antecubital area. The patient states he was just discharged from the hospital yesterday. He had an periph IV in each antecubital fossa. This morning he noted that there was swelling that was firm, warm, pink in the left antecubital. He states he had been admitted for a GI bleed after being on Brilinta and ASA. He had an OK and stent placement previously and was on blood thinners afterward. After the GI bleed, his hgb dropped to 6.2. He was transfused with three units. The colonoscopy revealed 3 polyps which the endoscopist believed caused the bleeding. He has been asymptomatic since he was at home. - Related Data Allergies Allergy/AdvReac Type Severity Reaction Status Date / Time No Known Allergies Allergy Verified 02/10/21 21:41 Home Meds: Home Meds Aspirin 81 mg PO DAILY 01/16/21 [History] Metoprolol Succinate [Toprol XL 50mg] 50 mg PO DAILY 01/16/21 [History] Nitroglycerin 0.4 mg SL Q5M PRN 01/16/21 [History] atorvaSTATin [Lipitor] 20 mg PO DAILY 01/16/21 [History] lisinopriL [Lisinopril] 2.5 mg PO BID 01/16/21 [History] Past Medical History - Past Health History Medical/Surgical History: Denies Medical/Surgical History Cardiovascular History: Reports: OK, Stents Other Gastrointestinal History: 3 polyps removed- determined as the cause of internal bleeding Hematologic History: Reports: Blood Transfusion(s) - Infectious Disease History Infectious Disease History: Reports: Chicken Pox - Past Surgical History HEENT Surgical History: Reports: Tonsillectomy Cardiovascular Surgical History: Reports: Coronary Artery Stent GI Surgical History: Reports: Colonoscopy, EGD Social & Family History - Family History Family Medical History: No Pertinent Family History Cardiac: Reports: High Cholesterol, OK Endocrine/Metabolic: Reports: Diabetes, type II - Caffeine Use Caffeine Use: Reports: None - Recreational Drug Use Recreational Drug Use: No Review of Systems - Review of Systems Review Of Systems: Comprehensive ROS is negative, except as noted in HPI. ED EXAM, GENERAL - Physical Exam Exam: See Below Exam Limited By: No Limitations General Appearance: Alert, No Apparent Distress Ears: Normal External Exam Nose: Normal Inspection Throat/Mouth: Normal Inspection Head: Atraumatic, Normocephalic Neck: Normal Inspection Respiratory/Chest: No Respiratory Distress, Lungs Clear, Normal Breath Sounds Cardiovascular: Normal Peripheral Pulses, Regular Rate, Rhythm, No Murmur Peripheral Pulses: 3+: Radial (L), Radial (R) Extremities: Other (Left antecubital fossa: pink, warm, mild swelling, superficial cord-like vein) Neurological: Alert, Oriented Psychiatric: Normal Affect, Normal Mood Skin Exam: Warm, Dry, Intact, Normal Color, No Rash Lymphatic: No Adenopathy Departure - Departure Disposition: DC/Tfer to Acute Hospital 02 Condition: Good Clinical Impression: Non-ST elevation OK (NSTEMI), Superficial thrombophlebitis of arm, Anemia, History of GI bleed - Discharge Information Referrals: Shayan Monte MD [Primary Care Provider] - Additional Instructions: 1. Warm packs 20 minutes every 4 hours. 2. Tylenol 500mg every 6 hours as needed for pain 3. Elevate left arm. 4. Follow up with Dr. Monte <Evaristo Masters - Last Filed: 02/11/21 00:44> ED HPI GENERAL MEDICAL PROBLEM - History of Present Illness INITIAL COMMENTS - FREE TEXT/NARRATIVE: 36-year-old male with history of HLD, obesity, recent GI bleed and NSTEMI treated with drug eluting stent to LAD in December presents with left upper extremity erythema at the IV site. He was discharged from [facility] in [place] after being admitted from 02/06 - 02/10 for GI bleed where he underwent endoscopy and colonoscopy and 3 polypectomy. he was transfused 2 units PRBC for symptomatic anemia, and he complained of dyspnea on exertion, dizziness, shortness of breath, weakness and palpitations. He was instructed to stop aspirin and Brilinta. He denied any rectal bleeding since his discharge. He denied any chest pain, N/V. He did admit to fevers, congestion and cough yesterday. He was tested negative for Covid on 02/06. Of note after reviewing his records, he was admitted here for Chest pain in December and later transferred to [facility] for NSTEMI where he received 1 stent from PCI. He returned to our ER subsequently in 01/16 for chest pain, where two sets of troponin were unremarkable. Review of Systems - Review of Systems Review Of Systems: See Below #1 Interpretation EKG Interpretation Comments: Heart rate = 85 bpm, normal sinus rhythm, normal QRS interval, no STEMI. EKG and rhythm strip interpreted by me at 1001p Course - Vital Signs Last Recorded V/S: Last Vital Signs Temp 98.1 F 02/10/21 21:39 Pulse 107 H 02/10/21 21:39 Resp 16 02/10/21 21:39 BP 126/81 02/10/21 21:39 Pulse Ox 98 02/10/21 21:39 - Orders/Labs/Meds Orders: Active Orders 24 hr Category Date Time Status EKG 12 Lead [EKG Documentation Completion] [RC] STAT Care 02/10/21 21:51 Active CORONAVIRUS COVID-19 PEPE [MOLEC] Stat Lab 02/11/21 00:18 Ordered CULTURE BLOOD [BC] Stat Lab 02/11/21 00:19 Ordered CULTURE BLOOD [BC] Stat Lab 02/11/21 00:19 Ordered LACTIC ACID,WHOLE BLOOD [BG] Stat Lab 02/11/21 00:19 Ordered Blood Culture x2 Reflex Set [OM.PC] Stat Oth 02/11/21 00:19 Ordered Labs: Laboratory Tests 02/10/21 02/10/21 02/10/21 Range/Units 22:00 22:00 22:00 WBC 12.66 H (4.0-11.0) K/uL RBC 3.18 L (4.50-5.90) M/uL Hgb 8.6 L (13.0-17.0) g/dL Hct 27.5 L (38.0-50.0) % MCV 86.5 (80.0-98.0) fL MCH 27.0 (27.0-32.0) pg MCHC 31.3 (31.0-37.0) g/dL RDW Std Deviation 49.3 (28.0-62.0) fl RDW Coeff of Luciana 16 H (11.0-15.0) % Plt Count 534 H (150-400) K/uL MPV 8.50 (7.40-12.00) fL Neut % (Auto) 63.3 (48.0-80.0) % Lymph % (Auto) 25.4 (16.0-40.0) % [place] % (Auto) 8.7 (0.0-15.0) % Eos % (Auto) 2.2 (0.0-7.0) % Baso % (Auto) 0.4 (0.0-1.5) % Neut # (Auto) 8.0 H (1.4-5.7) K/uL Lymph # (Auto) 3.2 H (0.6-2.4) K/uL [place] # (Auto) 1.1 H (0.0-0.8) K/uL Eos # (Auto) 0.3 (0.0-0.7) K/uL Baso # (Auto) 0.1 (0.0-0.1) K/uL Nucleated RBC % 2.1 /100WBC Nucleated RBCs # 0 K/uL Sodium 138 (136-148) mmol/L Potassium 3.3 L (3.5-5.1) mmol/L Chloride 101 (98-107) mmol/L Carbon Dioxide 28.6 (21.0-32.0) mmol/L BUN 16 (7.0-18.0) mg/dL Creatinine 1.4 H (0.8-1.3) mg/dL Est Cr Clr Drug Dosing 79.18 mL/min Estimated GFR (MDRD) 58.0 ml/min Glucose 115 H (74-106) mg/dL Calcium 8.9 (8.5-10.1) mg/dL Total Bilirubin 0.2 (0.2-1.0) mg/dL AST 19 (15-37) IU/L ALT 27 (14-63) IU/L Alkaline Phosphatase 101 (46-116) U/L Troponin I 0.504 H* (0.000-0.056) ng/mL Total Protein 7.7 (6.4-8.2) g/dL Albumin 3.4 (3.4-5.0) g/dL Globulin 4.3 H (2.6-4.0) g/dL Albumin/Globulin Ratio 0.8 L (0.9-1.6) Urine Opiates Screen (NEGATIVE) Ur Oxycodone Screen (NEGATIVE) Urine Methadone Screen (NEGATIVE) Ur Barbiturates Screen (NEGATIVE) Ur Phencyclidine Scrn (NEGATIVE) Ur Amphetamine Screen (NEGATIVE) U Methamphetamines Scrn (NEGATIVE) U Benzodiazepines Scrn (NEGATIVE) U Cocaine Metab Screen (NEGATIVE) U Marijuana (THC) Screen (NEGATIVE) 02/10/21 Range/Units 23:05 WBC (4.0-11.0) K/uL RBC (4.50-5.90) M/uL Hgb (13.0-17.0) g/dL Hct (38.0-50.0) % MCV (80.0-98.0) fL MCH (27.0-32.0) pg MCHC (31.0-37.0) g/dL RDW Std Deviation (28.0-62.0) fl RDW Coeff of Luciana (11.0-15.0) % Plt Count (150-400) K/uL MPV (7.40-12.00) fL Neut % (Auto) (48.0-80.0) % Lymph % (Auto) (16.0-40.0) % [place] % (Auto) (0.0-15.0) % Eos % (Auto) (0.0-7.0) % Baso % (Auto) (0.0-1.5) % Neut # (Auto) (1.4-5.7) K/uL Lymph # (Auto) (0.6-2.4) K/uL [place] # (Auto) (0.0-0.8) K/uL Eos # (Auto) (0.0-0.7) K/uL Baso # (Auto) (0.0-0.1) K/uL Nucleated RBC % /100WBC Nucleated RBCs # K/uL Sodium (136-148) mmol/L Potassium (3.5-5.1) mmol/L Chloride (98-107) mmol/L Carbon Dioxide (21.0-32.0) mmol/L BUN (7.0-18.0) mg/dL Creatinine (0.8-1.3) mg/dL Est Cr Clr Drug Dosing mL/min Estimated GFR (MDRD) ml/min Glucose (74-106) mg/dL Calcium (8.5-10.1) mg/dL Total Bilirubin (0.2-1.0) mg/dL AST (15-37) IU/L ALT (14-63) IU/L Alkaline Phosphatase (46-116) U/L Troponin I (0.000-0.056) ng/mL Total Protein (6.4-8.2) g/dL Albumin (3.4-5.0) g/dL Globulin (2.6-4.0) g/dL Albumin/Globulin Ratio (0.9-1.6) Urine Opiates Screen NEGATIVE (NEGATIVE) Ur Oxycodone Screen NEGATIVE (NEGATIVE) Urine Methadone Screen NEGATIVE (NEGATIVE) Ur Barbiturates Screen NEGATIVE (NEGATIVE) Ur Phencyclidine Scrn NEGATIVE (NEGATIVE) Ur Amphetamine Screen NEGATIVE (NEGATIVE) U Methamphetamines Scrn NEGATIVE (NEGATIVE) U Benzodiazepines Scrn NEGATIVE (NEGATIVE) U Cocaine Metab Screen NEGATIVE (NEGATIVE) U Marijuana (THC) Screen NEGATIVE (NEGATIVE) Meds: Medications Discontinued Medications Generic Name Dose Route Start Last Admin Trade Name Freq PRN Reason Stop Dose Admin Aspirin 324 mg 02/11/21 00:09 Aspirin 81 Mg Tab.Chew PO 02/11/21 00:10 ONETIME ONE - Re-Assessments/Exams Free Text/Narrative Re-Assessment/Exam: 02/11/21 00:07 -I reviewed his blood work from 02/06 from , his HS-troponin I was not elevated on 02/06 but was not trended while he was hospitalized, today his troponin is significantly elevated despite being different assay. GI consult at [facility] on 02/08/21 recommended him to remain off anticoagulation for 7 full days given his GI bleed, and to resume aspirin and Brilinta in 7 days if there is no rebleeding. Heparin is withheld given this GI recommendation given his NSTEMI today. He will require transfer to [facility] for the need of higher level of care not available at this facility, and the need for reservoir engineering consultant services unavailable at this facility. Any emergency conditions have been stabilized to the ability of the ED prior to the transfer. Case was discussed and accepted by Dr. Loera at [facility] ER. Departure - Departure Time of Disposition: 00:43 - Discharge Information *PRESCRIPTION DRUG MONITORING PROGRAM REVIEWED*: Not Applicable *COPY OF PRESCRIPTION DRUG MONITORING REPORT IN PATIENT MARGY: Not Applicable Critical Care Note - Critical Care Note Total Time (mins): 40 Comments: CRITCAL CARE: The high probability of sudden, clinically significant deterioration in the pat luciana's condition required the highest level of my preparedness to intervene urgently. The services I provided to this patient were to treat and/or prevent clinically significant deterioration. Services included the following: chart data review, reviewing nursing notes and/or old charts, documentation time, managing consultant collaboration regarding findings and treatment options, medication orders and m anagement, direct patient care, vital sign assessments and ordering, interpreting and reviewing diagnostic studies/lab tests. Aggregate critical care time includes only time during which I was engaged in work directly related to the patient's care, as described above, whether at the bedside or elsewhere in the Emergency Department. It did not include time spent performing other reported procedures or the services of residents, students, nurses or physician assistants. Frequent interventions and/or frequent repeat evaluations were required as well as counseling and coordination of care regard ing prognosis, treatments, and discussions with patient, staff and consultants. Critical Care (excluding other procedures): 40 minutes Sepsis Event Note (ED) - Focused Exam Vital Signs: Vital Signs Temp Pulse Resp BP Pulse Ox 02/10/21 21:39 98.1 F 107 H 16 126/81 98 - My Orders Last 24 Hours: My Active Orders 02/11/21 00:18 CORONAVIRUS COVID-19 PEPE [MOLEC] Stat 02/11/21 00:19 CULTURE BLOOD [BC] Stat CULTURE BLOOD [BC] Stat LACTIC ACID,WHOLE BLOOD [BG] Stat Blood Culture x2 Reflex Set [OM.PC] Stat - Assessment/Plan Last 24 Hours: My Active Orders 02/11/21 00:18 CORONAVIRUS COVID-19 PEPE [MOLEC] Stat 02/11/21 00:19 CULTURE BLOOD [BC] Stat CULTURE BLOOD [BC] Stat LACTIC ACID,WHOLE BLOOD [BG] Stat Blood Culture x2 Reflex Set [OM.PC] Stat
[2021-02-10 22:28] LABS: CARBON DIOXIDE,CO2 28.6 mmol/L (21.0-32.0); POTASSIUM,K 3.3 mmol/L (3.5-5.1)
[2021-02-11] MEDS ORDERED: Aspirin 81 MG Tab.Chew PO ONE (00:09)
--- NOTE | 2021-02-11 00:19 | US ---
INDICATION: Thrombophlebitis, recent IV removed TECHNIQUE: Ultrasound venous duplex upper left extremity. Compression venous exam was performed using harden-scale, color Doppler, and spectral Doppler imaging. COMPARISON: None FINDINGS: The left internal jugular, subclavian, and axillary veins are patent with normal waveforms. The brachial and cephalic veins are fully compressible. There is clot within approximately 7 cm of the left basilic vein at the level of the antecubital region. No soft tissue abnormalities seen. IMPRESSION: No DVT in the left upper extremity. Superficial thrombophlebitis within the left basilic vein at the level of the antecubital region. Dictated by Sherry Caro MD @ Feb 11 2021 12:15AM Signed by Dr. Sherry Caro @ Feb 11 2021 12:18AM
== END 2021-02-11 01:38 ==
LOC: MW.ED 21:12
DX: I80.8 Phlebitis and thrombophlebitis of other sites (principal); I21.4 Non-ST elevation (NSTEMI) myocardial infarction; D64.9 Anemia, unspecified; E78.5 Hyperlipidemia, unspecified; E66.9 Obesity, unspecified; Z68.29 Body mass index [BMI] 29.0-29.9, adult; Z95.5 Presence of coronary angioplasty implant and graft; Z79.82 Long term (current) use of aspirin; Z79.899 Other long term (current) drug therapy; Z20.822 Contact with and (suspected) exposure to COVID-19
CPT/HCPCS: 36415; 80053; 80305; 83605; 84484; 85025; 87040; 87635; 93005; 93971; 99291; A9270; 93010; U0002

== ENCOUNTER 2021-02-24 19:29 | Emergency (ER) | payer BC ==
[2021-02-24] MEDS ORDERED: Sodium Chloride 0.9% 1,000 ML IV ONE (20:13)
[2021-02-24 20:45] LABS: BLOOD UREA NITROGEN,BUN 20 mg/dL (7.0-18.0); CARBON DIOXIDE,CO2 25.2 mmol/L (21.0-32.0); CHLORIDE,CL 103 mmol/L (98-107); GLUCOSE RANDOM 119 mg/dL (74-106); SODIUM,NA 140 mmol/L (136-148)
--- NOTE | 2021-02-24 20:54 | CR ---
HISTORY: Weakness and shortness of breath. COMPARISON: 01/16/2021. FINDINGS: Single portable frontal view of the chest. The lungs are clear. No pleural effusion. No evidence for pneumonia. Heart size and pulmonary vascularity within normal limits. Bones and soft tissues appear within normal. Dictated by Samantha Felipe MD @ 02/24/2021 8:53:[address] Samantha Felipe @ Feb 24 2021 8:53PM
[2021-02-24] MEDS ORDERED: Iopamidol 755 MG/ML 500 ML Multipack Bottle IVPUSH STA (21:42)
--- NOTE | 2021-02-24 22:42 | EDM.PDOC ---
ED HPI GENERAL MEDICAL PROBLEM - General Chief Complaint: General Stated Complaint: WEAK / SOB Time Seen by Provider: 02/24/21 19:31 Source of Information: Reports: Patient History Limitations: Reports: No Limitations - History of Present Illness INITIAL COMMENTS - FREE TEXT/NARRATIVE: HISTORY AND PHYSICAL: History of present illness: Patient is a 36-year-old male who presents to the ED today with concern of his hemoglobin level due to anemia as patient has been more weak and short of breath with exertion today with worsening dark stools. Patient states he had a heart attack approximately 2 months ago (12/22) and was given a stent of his LAD at [facility]. Patient states that he had a GI bleed and had to go back to [facility] to see the GI specialist as his hgb was 6.8 with a positive Hemoccult. Patient states that he never noticed blood in his stool and has not had any other source of bleeding. Patient states he had a colonoscopy as well as an upper endoscopy and was told that he may have some mild gastritis and they removed "a few polyps ". Patient states that they did not find any active GI bleeding. Patient states that he is on Brilinta after his stent placement in December. Patient states that he was told his iron is low and was supposed to be getting a referral to the transfusion center to get iron transfusions. Patient states today he felt like his hemoglobin was lower than usual and states that his last hemoglobin check was 8.9. Patient states he did receive a blood transfusion at [facility] when he was there with his GI bleed prior. States he has been having dark stools and is on Brilinta. States today he has felt more tired and rundown and states that he does feel short of breath/winded with going up the stairs. Patient states that he has also had a cough for a few months and states that he was taken off lisinopril and switch to an ARB. Patient states that this did not help his symptoms so he is "being treated for bronchitis right now "with steroids and doxycycline. Denies any other symptoms or concerns. Patient denies fever, chills, chest pain, or cough. Denies headache, neck stiff ness, change in vision, syncope, or near syncope. Denies nausea, vomiting, abdominal pain, diarrhea, constipation, or dysuria. Has not noted any blood in urine or stool. Patient has been eating and drinking appropriately. Review of systems: As per history of present illness and below otherwise all systems reviewed and negative. Past medical history: As per history of present illness and as reviewed below otherwise noncontributory. Surgical history: As per history of present illness and as reviewed below otherwise noncontributory. Social history: See social history for further information Family history: As per history of present illness and as reviewed below otherwise noncontributory. Physical exam: General: Patient is alert, oriented, and in no acute distress. Patient sitting comfortably on exam table, pale and tired appearing. Tachycardic 110s on exam otherwise vitally stable and reviewed by me. HEENT: Atraumatic, normocephalic, pupils equal and reactive bilaterally, positive for conjunctival pallor but negative for scleral icterus, mucous membranes moist, TMs normal bilaterally, throat clear, neck supple, nontender, trachea midline. No drooling or trismus noted. No meningeal signs. No hot potato voice noted. Lungs: Clear to auscultation, breath sounds equal bilaterally, chest nontender. Heart: S1S2, regular rate and rhythm without overt murmur Abdomen: Soft, nondistended, nontender. Negative for masses or hepatosplenomegaly. Negative for costovertebral tenderness. Pelvis: Stable nontender. Genitourinary: Deferred. Rectal: Glove Operator at bedside Jeane Dillard. Hemoccult positive. No obvious hemorrhoids, lesions, fissures, masses noted. Tone intact Skin: Intact, warm, dry. No lesions or rashes noted. Extremities: Atraumatic, negative for cords or calf pain. Neurovascular unremar kable. Neuro: Awake, alert, oriented. Cranial nerves II through XII unremarkable. Cerebellum unremarkable. Motor and sensory unremarkable throughout. Exam nonfocal. Notes: Upon arrival the ED, patient is mildly tachycardic 110s on exam, tired and quite pale appearing. Patient presents to the ED secondary to increased weakness and short of breath with worsening darkening stools and concern for worsening hemoglobin level due to already underlying anemia, last hgb 8.9 according to patient. Patient is 2 months s/p cardiac stent following NSTEMI. Hemoccult positive. Will perform cardiac evaluation. Dr. Munguai verbally involved in patient care. See his consult note for specific EKG interpretation. No STEMI or acute ischemic changes. Normal sinus rhythm. Will perform CBC significant for worsening anemia with a hgb 7.9 and mild leukocytosis at 13.2 and worsening thrombocytosis at 840. CMP mild derangements unremarkable. Troponin negative. D-dimer is positive at 0.89 so will obtain an and CT chest. And CT chest shows no evidence of pulmonary thromboembolism or other acute intrathoracic process. Mildly enlarged main pulmonary artery, suggesting pulmonary hypertension. Given that patient has symptomatic worsening anemia with a history of increasing dark stools with guaiac positive stool today, patient requires transfer to a higher level facility for acute GI bleed to receive further evaluation by Gastroenterology. Patient declines transfer by EMS but is agreeable to transfer via private vehicle. All risks versus benefits discussed with patient and expresses understanding. I did call and speak to the ER provider at [facility], Dr. Loera, and thoroughly discussed patient's case. Accepting of transfer. Upon discharge, patient's tachycardia has improved to 90 bpm following 1 L of normal saline bolus and otherwise remains vitally stable. Patient discharged to transfer to [facility] in stable condition. Diagnostics: EKG, Trop, CBC, CMP, UA, Hemoccult, CXR, Ddimer, Ang CT chest, COVID [employer]: NS Impression: Acute GI bleed Plan: Transfer to Dr. Loera, ER, via private vehicle Definitive disposition and diagnosis as appropriate pending reevaluation and review of above. - Related Data Allergies Allergy/AdvReac Type Severity Reaction Status Date / Time No Known Allergies Allergy Verified 02/24/21 19:46 Home Meds: Home Meds Aspirin 81 mg PO DAILY 01/16/21 [History] Metoprolol Succinate [Toprol XL 50mg] 50 mg PO DAILY 01/16/21 [History] Nitroglycerin 0.4 mg SL Q5M PRN 01/16/21 [History] atorvaSTATin [Lipitor] 20 mg PO DAILY 01/16/21 [History] Losartan Potassium 50 mg PO DAILY 02/24/21 [History] Ticagrelor [Brilinta] 90 mg PO DAILY 02/24/21 [History] Past Medical History - Past Health History Medical/Surgical History: Denies Medical/Surgical History Cardiovascular History: Reports: NH, Stents Other Gastrointestinal History: 3 polyps removed- determined as the cause of internal bleeding Hematologic History: Reports: Blood Transfusion(s) - Infectious Disease History Infectious Disease History: Reports: Chicken Pox - Past Surgical History HEENT Surgical History: Reports: Tonsillectomy Cardiovascular Surgical History: Reports: Coronary Artery Stent GI Surgical History: Reports: Colonoscopy, EGD Social & Family History - Family History Family Medical History: No Pertinent Family History Cardiac: Reports: High Cholesterol, [place] Endocrine/Metabolic: Reports: Diabetes, type II - Caffeine Use Caffeine Use: Reports: None ED ROS GENERAL - Review of Systems Review Of Systems: Comprehensive ROS is negative, except as noted in HPI. ED EXAM, GENERAL - Physical Exam Exam: See Below (see dictation) Course - Vital Signs Last Recorded V/S: Last Vital Signs Temp 98 F 02/25/21 00:00 Pulse 90 02/25/21 00:00 Resp 18 02/24/21 19:44 BP 112/73 02/25/21 00:00 Pulse Ox 96 02/25/21 00:00 - Orders/Labs/Meds Labs: Laboratory Tests 02/24/21 02/24/21 02/24/21 Range/Units 20:16 20:16 20:16 WBC 13.20 H (4.0-11.0) K/uL RBC 3.09 L (4.50-5.90) M/uL Hgb 7.9 L (13.0-17.0) g/dL Hct 25.4 L (38.0-50.0) % MCV 82.2 (80.0-98.0) fL MCH 25.6 L (27.0-32.0) pg MCHC 31.1 (31.0-37.0) g/dL RDW Std Deviation 51.0 (28.0-62.0) fl RDW Coeff of Luciana 17 H (11.0-15.0) % Plt Count 840 H (150-400) K/uL MPV 8.90 (7.40-12.00) fL Neut % (Auto) 81.0 H (48.0-80.0) % Lymph % (Auto) 14.8 L (16.0-40.0) % Tillman % (Auto) 3.9 (0.0-15.0) % Eos % (Auto) 0.1 (0.0-7.0) % Baso % (Auto) 0.2 (0.0-1.5) % Neut # (Auto) 10.7 H (1.4-5.7) K/uL Lymph # (Auto) 2.0 (0.6-2.4) K/uL Tillman # (Auto) 0.5 (0.0-0.8) K/uL Eos # (Auto) 0.0 (0.0-0.7) K/uL Baso # (Auto) 0.0 (0.0-0.1) K/uL Nucleated RBC % 1.1 /100WBC Nucleated RBCs # 0 K/uL D-Dimer, Quantitative (0.0-0.50) mg/L FEU Sodium 140 (136-148) mmol/L Potassium 4.0 (3.5-5.1) mmol/L Chloride 103 (98-107) mmol/L Carbon Dioxide 25.2 (21.0-32.0) mmol/L BUN 20 H (7.0-18.0) mg/dL Creatinine 1.2 (0.8-1.3) mg/dL Est Cr Clr Drug Dosing 92.38 mL/min Estimated GFR (MDRD) > 60.0 ml/min Glucose 119 H (74-106) mg/dL Calcium 9.2 (8.5-10.1) mg/dL Total Bilirubin 0.2 (0.2-1.0) mg/dL AST 18 (15-37) IU/L ALT 26 (14-63) IU/L Alkaline Phosphatase 98 (46-116) U/L Troponin I < 0.050 (0.000-0.056) ng/mL Total Protein 8.2 (6.4-8.2) g/dL Albumin 3.7 (3.4-5.0) g/dL Globulin 4.5 H (2.6-4.0) g/dL Albumin/Globulin Ratio 0.8 L (0.9-1.6) Influenza Type A RNA (NEGATIVE) Influenza Type B RNA (NEGATIVE) SARS-CoV-2 RNA (PEPE) (NEGATIVE) 02/24/21 02/24/21 Range/Units 20:16 23:14 WBC (4.0-11.0) K/uL RBC (4.50-5.90) M/uL Hgb (13.0-17.0) g/dL Hct (38.0-50.0) % MCV (80.0-98.0) fL MCH (27.0-32.0) pg MCHC (31.0-37.0) g/dL RDW Std Deviation (28.0-62.0) fl RDW Coeff of Luciana (11.0-15.0) % Plt Count (150-400) K/uL MPV (7.40-12.00) fL Neut % (Auto) (48.0-80.0) % Lymph % (Auto) (16.0-40.0) % Tillman % (Auto) (0.0-15.0) % Eos % (Auto) (0.0-7.0) % Baso % (Auto) (0.0-1.5) % Neut # (Auto) (1.4-5.7) K/uL Lymph # (Auto) (0.6-2.4) K/uL Tillman # (Auto) (0.0-0.8) K/uL Eos # (Auto) (0.0-0.7) K/uL Baso # (Auto) (0.0-0.1) K/uL Nucleated RBC % /100WBC Nucleated RBCs # K/uL D-Dimer, Quantitative 0.89 H (0.0-0.50) mg/L FEU Sodium (136-148) mmol/L Potassium (3.5-5.1) mmol/L Chloride (98-107) mmol/L Carbon Dioxide (21.0-32.0) mmol/L BUN (7.0-18.0) mg/dL Creatinine (0.8-1.3) mg/dL Est Cr Clr Drug Dosing mL/min Estimated GFR (MDRD) ml/min Glucose (74-106) mg/dL Calcium (8.5-10.1) mg/dL Total Bilirubin (0.2-1.0) mg/dL AST (15-37) IU/L ALT (14-63) IU/L Alkaline Phosphatase (46-116) U/L Troponin I (0.000-0.056) ng/mL Total Protein (6.4-8.2) g/dL Albumin (3.4-5.0) g/dL Globulin (2.6-4.0) g/dL Albumin/Globulin Ratio (0.9-1.6) Influenza Type A RNA NEGATIVE (NEGATIVE) Influenza Type B RNA NEGATIVE (NEGATIVE) SARS-CoV-2 RNA (PEPE) NEGATIVE (NEGATIVE) Meds: Medications Discontinued Medications Generic Name Dose Route Start Last Admin Trade Name Jarrellq PRN Reason Stop Dose Admin Sodium Chloride 1,000 mls @ 999 mls/hr 02/24/21 20:13 02/24/21 20:45 Normal Saline IV 02/24/21 21:13 999 mls/hr BOLUS ONE Administration Iopamidol 100 ml 02/24/21 21:42 02/24/21 21:43 Iopamidol 755 Mg/Ml 500 Ml Multipack Bottle IVPUSH 02/24/21 21:43 100 ml ONETIME STA Administration Departure - Departure Time of Disposition: 22:58 Disposition: DC/Tfer to Acute Hospital 02 Clinical Impression: Acute GI bleeding - Discharge Information Referrals: Shayan Monte MD [Primary Care Provider] - Forms: ED Department Discharge Sepsis Event Note (ED) - Evaluation Sepsis Screening Result: No Definite Risk
--- NOTE | 2021-02-24 22:52 | CT ---
INDICATION: Chest pain, elevated D-dimer TECHNIQUE: Contrast enhanced axial CT imaging through the chest, optimized for assessment of the pulmonary arterial tree. 100 mL Isovue 370 contrast agent was administered intravenously. Sagittal and coronal reconstructions are provided. COMPARISON: PA chest radiograph 02/24/2021 FINDINGS: There is adequate opacification of the pulmonary arterial tree without evidence of thromboembolism. The main pulmonary artery is mildly enlarged. The heart is normal in size. LAD stent is noted. There is no pericardial effusion. The thoracic aorta is normal in caliber. There is no mediastinal lymphadenopathy. The lungs are clear. There is no pleural effusion or pneumothorax. The thoracic osseous structures are unremarkable. The spleen is absent. The included upper abdomen is otherwise unremarkable. IMPRESSION: 1. No evidence of pulmonary thromboembolism or other acute intrathoracic process. 2. Mildly enlarged main pulmonary artery, suggesting pulmonary hypertension. Correlate clinically. Please note that all CT scans at this facility use dose modulation, iterative reconstruction, and/or weight-based dosing when appropriate to reduce radiation dose to as low as reasonably achievable. Dictated by Chun Brito MD @ 02/24/2021 10:50:[address] Chun Brito @ Feb 24 2021 10:50PM
[2021-02-25 00:03] LABS: CORONAVIRUS COVID-19 NAA NEGATIVE (NEGATIVE); INFLUENZA A NAA NEGATIVE (NEGATIVE); INFLUENZA B NAA NEGATIVE (NEGATIVE)
--- NOTE | 2021-02-25 03:13 | PCM.EKG ---
#1 Interpretation EKG Date: 02/24/21 Time: 20:28 Rhythm: NSR Rate (Beats/Min): 90 Wright: Normal P-Wave: Present QRS: Normal ST-T: Normal QT: Normal Comparison: No Change (02/10/21) EKG Interpretation Comments: Sinus Rhythm
== END 2021-02-25 00:20 ==
LOC: MW.ED 19:29
DX: K92.2 Gastrointestinal hemorrhage, unspecified (principal); I25.2 Old myocardial infarction; Z95.5 Presence of coronary angioplasty implant and graft; Z79.82 Long term (current) use of aspirin; Z20.822 Contact with and (suspected) exposure to COVID-19; Z79.02 Long term (current) use of antithrombotics/antiplatelets; Z79.899 Other long term (current) drug therapy
CPT/HCPCS: 0240U; 36415; 71045; 71275; 80053; 84484; 85025; 85379; 93005; 99285; J7030; Q9967; 93010; 99284